=== PATIENT | male | born 1960 | race African-American/Black ===

== ENCOUNTER 2022-02-03 21:21 | Emergency (ER) | payer MEDICAID ==
[~2022-02-03] VITALS: Ht 177.8 cm; Wt 80.0 kg
[2022-02-03] MEDS ORDERED: IPRATROPIUM BROMIDE (0.02%) 0.5MG/2.5ML NEB HHN STA (22:02)
[2022-02-03] MEDS ORDERED: ALBUTEROL (0.083%) 2.5MG/3ML NEB HHN STA (22:02)
[2022-02-03] MEDS ORDERED: METHYLPREDNISOLONE SOD SUCC 125 MG/2 ML VIAL IV STA (22:02)
[2022-02-03] MEDS ORDERED: MAGNESIUM 2 G PREMIX 50 ML IV ONE (22:15)
[2022-02-03 22:47] LABS: BASOPHILS % 1.4 % (0.0-2.0); EOSINOPHILS % 3.3 % (0.0-5.0); HEMATOCRIT. 41.9 % (42.0-52.0); HEMOGLOBIN. 13.8 g/dL (14.0-18.0); LYMPHOCYTES % 28.2 % (20.0-50.0); MEAN CORPUSCULAR HEMOGLOBIN 30.9 pg (28.0-32.0); MEAN CORPUSCULAR VOLUME 94.1 fL (80.0-94.0); MEAN PLATELET VOLUME 8.6 fl (7.4-10.4); MONOCYTES % 10.6 % (2.0-8.0); NEUTROPHILS % 56.5 % (40.0-76.0); PLATELET 326 x1000/uL (130-400); RED BLOOD CELL COUNT 4.45 mill/uL (4.7-6.1); RED CELL DISTRIBUTION WIDTH 14.2 % (11.6-14.6)
[2022-02-03 22:56] LABS: CHLORIDE 104 mEq/L (98-107)
[2022-02-04] MEDS ORDERED: METHYLPREDNISOLONE SOD SUCC 125 MG/2 ML VIAL IV NR (00:15)
[2022-02-04 04:44] VITALS: BP 133/91
== END 2022-02-04 04:45 | disposition short-term general hospital (02) ==
LOC: ER 21:21
DX: J96.91 Respiratory failure, unspecified with hypoxia (principal); J44.1 Chronic obstructive pulmonary disease with (acute) exacerbation; I10 Essential (primary) hypertension; Z20.822 Contact with and (suspected) exposure to COVID-19
CPT/HCPCS: 36415; 71045; 80053; 83880; 84484; 85025; 87426; 93005; 94640; 96365; 96375; 99285; C9803; J2930; J3475; Z7610